=== PATIENT | female | born 1985 | race Caucasian/White ===

== ENCOUNTER 2020-08-17 00:04 | Emergency (ER) | payer MEDICAID ==
[~2020-08-17] VITALS: Ht 157.5 cm; Wt 49.9 kg
[~2020-08-17 00:04] MED LIST: ALPR0.5T2 PO
[2020-08-17 00:15] VITALS: BP 117/77
--- NOTE | 2020-08-17 00:20 | NUR ---
TO BED #07 AMBULATORY
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
--- NOTE | 2020-08-17 01:18 | NUR ---
Dr. Malone examining patient.
--- NOTE | 2020-08-17 01:18 | NUR ---
Ultrasound at bedside.
--- NOTE | 2020-08-17 03:00 | NUR ---
Patient appears to be resting comfortably in bed. Vital Signs within normal limits. Respirations even and unlabored.
--- NOTE | 2020-08-17 04:00 | NUR ---
pt wound on r leg irrigated with normal saline and betadine, covered with non adherent dressing and wrapped with coflex
[2020-08-17 04:20] VITALS: BP 121/81
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
--- NOTE | 2020-08-17 04:20 | NUR ---
Patient discharged with v/s stable. Written and verbal after care instructions given and explained. Patient alert, oriented and verbalized understanding of instructions. Ambulatory with steady gait. All questions addressed prior to discharge. ID band removed. Patient advised to follow up with PMD. Rx of BACTRIM, MOTRIN, KEFLEX given. Patient educated on indication of medication including possible reaction and side effects. Opportunity to ask questions provided and answered.
== END 2020-08-17 04:20 | disposition home or self-care (01) ==
LOC: MED 00:04
DX: L03.115 Cellulitis of right lower limb (principal); Z79.899 Other long term (current) drug therapy
CPT/HCPCS: 76881; 99284

== ENCOUNTER 2020-09-23 02:13 | Emergency (ER) | payer SELFPAY ==
[~2020-09-23] VITALS: Ht 157.5 cm; Wt 63.5 kg
--- NOTE | 2020-09-23 02:25 | NUR ---
SEEN AND EXAMINED BY RUTH WITH ORDERS AND CARRIED OUT
[2020-09-23 02:27] VITALS: BP 135/78
[2020-09-23] MEDS ORDERED: NACL 0.9% 500 ML IV ONE (02:50)
[2020-09-23] MEDS ORDERED: ACETAMINOPHEN 650 MG/20.3 ML UDC PO ONE (02:50)
--- NOTE | 2020-09-23 03:00 | NUR ---
MEDICATED PER ERMDS ORDER, TOLERATED WELL.
[2020-09-23 03:04] LABS: BARBITURATE, URINE NEGATIVE ng/ml (NEG <=200); BENZODIAZEPINE, URINE NEGATIVE ng/mL (NEG <=200); CANNABINOID, URINE NEGATIVE ng/mL (NEG <=50); COCAINE, URINE NEGATIVE ng/mL (NEG <=300); OPIATE, URINE NEGATIVE ng/mL (NEG <=2000); PHENCYCLIDINE SCREEN,URINE NEGATIVE ng/mL (NEG <=25)
[2020-09-23 03:46] LABS: BASOPHILS % (AUTO) 0.3 % (0.0-2.0); EOSINOPHILS % (AUTO) 0.4 % (0.0-4.0); HEMATOCRIT 28.2 % (36-48); HEMOGLOBIN 9.1 g/dL (12.0-16.0); LYMPHOCYTES % (AUTO) 14.5 % (20.5-51.1); MEAN CORPUSCULAR HEMOGLOBIN 24 pg (27-31); MEAN CORPUSCULAR HGB CONC 32 g/dL (33-37); MEAN CORPUSCULAR VOLUME 75.1 fL (80-94); MONOCYTES # (AUTO) 0.3 K/uL (0.8-1.0); MONOCYTES % (AUTO) 4.4 % (1.7-9.3); NEUTROPHILS # (AUTO) 5.7 K/uL (1.8-7.7); NEUTROPHILS % (AUTO) 80.4 % (42.2-75.2); PLATELET COUNT (AUTO) 260 K/uL (140-450); RED BLOOD CELL COUNT(AUTO) 3.75 MIL/uL (4.20-5.40); RED CELL DISTRIBUTION WIDTH 17.3 % (11.6-13.7); WHITE BLOOD COUNT (AUTO) 7.1 K/uL (4.8-10.8)
[2020-09-23 04:00] LABS: ALBUMIN 3.1 g/dL (3.4-5.0); ANION GAP 11.9 (8-16); ASPARTATE AMINOTRANSFERASE 13 U/L (15-37); CARBON DIOXIDE 28.7 mmol/L (21-32); CHLORIDE 97 mmol/L (98-107); CREATININE 0.5 mg/dL (0.6-1.3); GFR ARICAN-AMERICAN 183 mL/min (>90); GLUCOSE 90 mg/dL (74-106); POTASSIUM 3.6 mmol/L (3.5-5.1); SODIUM SERUM 134 mmol/L (136-145); TOTAL BILIRUBIN 0.3 mg/dL (0.0-1.0); UREA NITROGEN, BLOOD 10 mg/dL (7-18)
--- NOTE | 2020-09-23 04:00 | NUR ---
ALL RESULTS BACK AND NOTED BY ERMD AND FOR D/C
[2020-09-23 04:29] LABS: APPEARANCE,URINE CLEAR (CLEAR); BILIRUBIN,URINE NEGATIVE (NEGATIVE); BLOOD, URINE NEGATIVE (NEGATIVE); COLOR,URINE YELLOW (YELLOW); LEUKOCYTE ESTERASE ,URINE NEGATIVE (NEGATIVE); NITRITE, URINE NEGATIVE (NEGATIVE); UGLUCOSE NEGATIVE (NEGATIVE)
[2020-09-23 05:30] VITALS: BP 119/81
--- NOTE | 2020-09-23 05:30 | NUR ---
Patient discharged with v/s stable. Written and verbal after care instructions given and explained. Patient verbalized understanding. Ambulatory with steady gait. All questions addressed prior to discharge. Advised to follow up with PMD.
== END 2020-09-23 05:30 | disposition home or self-care (01) ==
LOC: MED 02:13
DX: O26.892 Other specified pregnancy related conditions, second trimester (principal); R10.30 Lower abdominal pain, unspecified; Z79.899 Other long term (current) drug therapy
CPT/HCPCS: 36415; 76805; 80053; 80305; 81003; 81025; 85025; 96360; 99284; G0482; J7030

== ENCOUNTER 2020-09-25 03:08 | Emergency (ER) | payer SELFPAY ==
[~2020-09-25] VITALS: Ht 157.5 cm; Wt 56.7 kg
[2020-09-25 03:20] VITALS: BP 114/71
--- NOTE | 2020-09-25 03:23 | NUR ---
TO LOBBY A/W BED AMBULATORY
[2020-09-25 03:39] VITALS: BP 114/71
[2020-09-25] MEDS ORDERED: ACETAMINOPHEN EXTRA STRENGTH 500 MG TAB PO ONE (04:05)
[2020-09-25] MEDS ORDERED: ONDANSETRON 4 MG TAB PO ONE (04:10)
== END 2020-09-25 04:22 | disposition home or self-care (01) ==
LOC: MED 03:08
DX: O26.892 Other specified pregnancy related conditions, second trimester (principal); R10.84 Generalized abdominal pain; F15.90 Other stimulant use, unspecified, uncomplicated; Z3A.18 18 weeks gestation of pregnancy
CPT/HCPCS: 99283; Q0162